=== PATIENT | female | born 1995 | race Caucasian/White ===

== ENCOUNTER 2024-05-07 18:06 | Emergency (ER) | payer OTHER, SELFPAY ==
--- NOTE | ~2024-05-07 | US_ITS ---
CLINICAL HISTORY: swelling, pain, high concern for DVTs Bilateral lower extremity venous duplex ultrasound. Study was performed using color and spectral waveform analysis. Comparison: None Findings: Visualized deep veins are fully compressible with normal flow and augmentation. No popliteal cysts. No significant adenopathy. Impression: Bilateral lower extremity venous duplex ultrasound negative for DVT This document has been electronically signed by: Jorge Willis MD on 05/07/2024 20:34:49
--- NOTE | ~2024-05-07 | CT_ITS ---
CLINICAL HISTORY: SOB, dizziness, concern for PE CT angiogram chest/pulmonary arteries with contrast Multiplanar reconstructions and MIPS Comparison: None Findings: No filling defects are noted to suggest pulmonary embolus. Main pulmonary artery normal in caliber. Thoracic aorta normal caliber without dissection. Heart size normal. Great vessel origins patent. No coronary calcifications. No significant focal parenchymal abnormalities. No significant mediastinal or hilar adenopathy. No free pleural fluid. No acute bony abnormality noted. Impression: No evidence of pulmonary embolus This document has been electronically signed by: Jorge Willis MD on 05/07/2024 21:04:19
--- NOTE | 2024-05-07 18:07 | ECG_ITS ---
Test Reason : CHEST PAIN Blood Pressure : */* mmHG Vent. Rate : 110 BPM Atrial Rate : 110 BPM P-R Int : 140 ms QRS Dur : 70 ms QT Int : 388 ms P-R-T Axes : 69 61 35 degrees QTcB Int : 525 ms Sinus tachycardia Possible Left atrial enlargement T wave abnormality, consider inferior ischemia Prolonged QT Abnormal ECG No previous ECGs available Referred By: Generic ED Physician Electronically Signed By: Deejay Simon
[2024-05-07 18:14] VITALS: BP 147/103; PULSE 126; RESP 20; TEMP 36.7; O2SAT 100; BMI 21.8
--- NOTE | 2024-05-07 18:16 | ED_ITS ---
HPI - General Adult General Chief complaint: Chest Pain Stated complaint: chest pain Time Seen by Provider: 05/07/24 18:28 Source: patient Mode of arrival: ambulatory Limitations: no limitations History of Present Illness ED Provider: Lenora Arteaga PA-C HPI narrative: Patient is a 28 year old assigned female at with a history of tobacco use, marijuana use, and OCP use presenting to the emergency department today with intermittent chest pain, palpitations, shortness of breath, dizziness, and right lower leg pain. Patient states that over the last week she has been having intermittent chest pain, shortness of breath, dizziness, and right lower leg pain. Patient states that she is much more winded doing any version of walking. Patient states that her sister has a clotting disorder and her mother of a heart attack in her early 50s. Patient denies any lightheadedness, abdominal pain, nausea, vomiting, fever, chills, blurry vision, double vision, loss of vision, back pain, night sweats, pain with urination, increased urinary frequency, increased urinary urgency, blood in her urine or stool, syncope or a near syncopal episode, recent trauma or falls, bowel incontinence, bladder incontinence, or any other complaints at this time. Onset (ago): week(s) (1) Relieving factors: none Exacerbating factors: other (exertion) Associated symptoms: shortness of breath Treatments prior to arrival: none Related Data Allergies Allergy/AdvReac Type Severity Reaction Status Date / Time gluten Allergy Hives Verified 05/07/24 18:20 nickel Allergy Rash Verified 05/07/24 18:20 Review of Systems 2 Constitutional: Constitutional: Reports no additional constitutional complaints, Denies chills, Denies fever(s) and Denies night sweats Eyes: Eyes: Reports no additional eye complaints, Denies blurry vision, Denies change in vision, Denies diplopia, Denies eye discharge, Denies loss of vision and Denies eye pain ENT: Reports dizziness Cardiovascular: Cardiovascular: Reports no additional cardiovascular complaints, Reports chest pain, Denies lightheadedness, Denies Loss of Consciousness, Reports palpitations and Reports dyspnea Respiratory: Respiratory: Reports no additional respiratory complaints, Reports cough and Reports dyspnea Gastrointestinal: Gastrointestinal: Reports no additional gastrointestinal complaints, Denies abdominal pain, Denies melena, Denies hematochezia, Denies change in bowel habits and Denies change in stool character Genitourinary: Genitourinary: Denies hematuria, Denies urinary frequency, Denies dysuria, Denies urinary incontinence, Denies urinary hesitancy and Denies urinary urgency Musculoskeletal: Musculoskeletal: Reports no additional musculoskeletal complaints, Denies numbness and Denies tingling Neurologic: Reports dizziness, Denies loss of vision, Denies numbness and Denies tingling Psychiatric: Psychiatric: Reports no additional psychiatric complaints Endocrine: Endocrine: Reports no additional endocrine complaints and Reports palpitations Hematologic/Lymphatic: Hematologic/Lymphatic: Reports no additional hematologic/lymphatic complaints Allergic/Immunologic: Allergic/Immunologic: Reports no additional allergic/immunologic complaints PMFSH Past Medical History Attestation statement: The following information was validated with the patient. Source: old records reviewed and nursing notes reviewed Social History Social History Smoked in Last 30 Days: No Advance Directives: No Advance Directives Information Provided: No Physical Exam ED Vital Signs: Vital Signs - 24 hr 05/07/24 18:14 05/07/24 20:11 Temperature 98.1 F 99.1 F Pulse Rate 126 H 75 Respiratory Rate 20 18 Blood Pressure 147/103 H 125/83 Pulse Oximetry 100 97 Oxygen Delivery Method Room Air Room Air BMI result Body Mass Index 21.8 Const General: cooperative, no acute distress, alert and awake Nutritional Appearance: well nourished Orientation/consciousness: patient oriented x3 Limitations: no limitations [facility] Head: Yes normal to inspection and Yes atraumatic Ears: hearing grossly normal bilaterally and external ears normal General nose exam: Normal external nose present, no nasal discharge noted and no epistaxis Face and sinus: Yes normal facial exam, No abrasion and No laceration Mouth: Normal oral and palatal mucosa present, no drooling and no muffled voice Eyes General: appearance normal, both eyes and all related structures Periorbital: periorbital findings normal Eyelids: Yes eyelids normal Conjunctivae: conjunctivae normal Pupils: Equal, round and reactive pupils present EOM: EOMs intact bilaterally Neck Neck: Yes normal visual inspection, Yes full ROM and Yes no lymphadenopathy Chest Chest palpation & inspection: normal inspection of the chest Resp Effort & Inspection: normal respiratory effort and able to speak in complete sentences GI Inspection: Yes normal to inspection Neuro General: patient oriented x3, moves all extremities and CN's II-XI intact bilaterally Cranial nerves: Yes Equal, round and reactive pupils present Cognition (Neuro): normal cognition Extrem General: Yes normal to inspection, Yes full ROM and Yes capillary refill normal Psych Appearance: grossly normal Mental Status: mental status grossly normal Affect: normal affect Attitude: cooperative Thought process: Normal thought process present Thought content: Normal thought content present Insight: Good insight present (Psych) Course Course Course Narrative: RME performed by Lenora Arteaga PA-C. Patient is a 28 year old assigned female at presenting to the emergency department with palpitations, shortness of breath, and chest pain. Patient states she is on an oral contraceptive, smokes, and has a sibling with a clotting disorder. Patient states that her mother from a heart attack in her mid 50s. Detailed physical exam and review of systems are deferred to the primary care md. EKG, labs, imaging, and swabs ordered. last ironer aware of patient. Medications Administered Discontinued Medications Generic Name Dose Route Start Last Admin Trade Name Freq PRN Reason Stop Dose Admin Magnesium Sulfate/Dextrose 1 gm in 100 mls @ 100 mls/hr 05/07/24 18:34 05/07/24 20:08 Magnesium Sulfate/D5w IV 05/07/24 19:33 Infused ONCE ONE Infusion Sodium Chloride 1,000 mls @ 999 mls/hr 05/07/24 18:45 05/07/24 20:09 Ns IV 05/07/24 19:45 Infused .Q1H1M FINN Infusion Iohexol 65 ml 05/07/24 20:23 05/07/24 20:24 Iohexol 350 Mg/Ml 100 Ml Infus..Btl IV 05/07/24 20:24 65 ml ONCE ONE Administration Potassium Chloride 40 meq 05/07/24 19:05 05/07/24 19:12 Potassium Chloride Packet 20 Meq Packet PO 05/07/24 19:06 40 meq ONCE ONE Administration Medical Decision Making Medical Decision Making MDM Narrative: Patient is a 28 year old assigned female at with a history of tobacco use, marijuana use, and OCP use presenting to the emergency department today with intermittent chest pain, palpitations, shortness of breath, dizziness, and right lower leg pain. Patient's physical exam was unremarkable. Patient's blood work showed a very mild hypokalemia but was otherwise unremarkable. Patient's urine showed no acute process. Patient's initial EKG showed sinus tachycardia with a prolonged QT. Patient's repeat EKG showed sinus rhythm with a normalized QT. Patient's CT PE study showed no acute process. Patient's bilateral lower leg US showed no acute process. Given the patient's significant personal history and familial history, I am suspicious the patient has an underlying arrhythmia or condition such as POTS. I explained my physical exam findings as well as all test results to the patient. I answered all questions asked by the patient. Patient was given IV magnesium and PO potassium. I stressed the importance of the patient taking her medication as directed (either prescribed or as the over the counter packaging recommends). I stressed the importance of the patient following up with her primary care provider and a foundation maker. I stressed the importance of the patient returning to the emergency department immediately if her symptoms were to worsen or if she were to develop any dizziness, shortness of breath, difficulty breathing, chest pain, blurry vision, loss of vision, nausea, vomiting, abdominal pain, fever, chills, back pain, or any other complaints. Patient verbalized agreement and understanding with this treatment plan and discharge. Differential Diagnosis Differential Diagnoses: The differential diagnosis associated with the presentation includes Palpitations Pulmonary embolism DVT POTS Arrhythmia Admission/Observation Consideration of admission/observation: Escalation of care including admission/observation considered Patient would have been admitted to the hospital had her work up had any findings where hospital admission was appropriate and her clinical presentation warranted hospital admission. Lab Data [facility] Lab Attestation statement: I reviewed the patient's lab results. My interpretation of these results are in the [facility] Rationale portion of this note. 05/07/24 18:35 05/07/24 18:35 Labs: Lab Results 05/07/24 05/07/24 05/07/24 Range/Units 18:35 18:39 20:19 WBC 6.7 (4.8-10.8) X10*3/uL RBC 4.37 (4.20-5.50) X10*6/uL Hgb 13.5 (12.0-16.0) g/dl Hct 38.1 (37.0-47.0) % MCV 87.2 (80.0-98.0) fL MCH 30.9 (27.0-33.0) pg MCHC 35.4 H (31.0-35.0) g/dl RDW 11.9 (11.0-16.0) % Plt Count 296 (160-400) X10*3/uL MPV 8.9 L (9.4-12.3) fL Immature Gran % (Auto) 0.2 (0.0-0.4) % Neut % (Auto) 58.8 (45-73) % Lymph % (Auto) 31.9 (20-40) % Mcclain % (Auto) 8.1 (2-11) % Eos % (Auto) 0.2 (0-4) % Baso % (Auto) 0.8 (0-2) % Lymph # (Auto) 2.1 (1.2-4.9) X10*3/uL Mcclain # (Auto) 0.5 (0.1-1.2) X10*3/uL Eos # (Auto) 0.0 (0.0-0.4) X10*3/uL Baso # (Auto) 0.1 (0.0-0.2) X10*3/uL Abs Immat Gran (auto) 0.01 (0.00-0.03) X10*3/uL Absolute Neuts (auto) 3.9 (2.0-8.3) x10*3/uL Absolute Nucleated RBC 0.000 (0.0-0.012) X10*3/uL Nucleated RBC % (auto) 0.0 (0.0-0.2) /100WBC PT 11.8 (10.9-12.4) SEC INR 1.0 (0.9-1.1) APTT 26.2 (26.0-36.8) SEC Sodium 141 (135-145) mmol/L Potassium 3.2 L (3.3-5.1) mmol/L Chloride 107 (96-108) mmol/L Carbon Dioxide 25 (22-29) mmol/L Anion Gap 12 (12-20) BUN 8 L (9-16) mg/dL Creatinine 0.78 (0.5-1.4) mg/dL Estim Creat Clear Calc 106.3 Estimated GFR > 60 Random Glucose 98 (60-115) mg/dL Calcium 9.3 (8.4-10.2) mg/dL Magnesium 1.9 (1.6-2.6) mg/dL Total Bilirubin 0.4 (0.0-1.0) mg/dL AST 23 (5-31) U/L ALT 24 (0-31) U/L Alkaline Phosphatase 46 (39-117) U/L Troponin I High Sens < 2.7 (<3.5-17.0) ng/L B-Natriuretic Peptide < 10 (<100) pg/mL Total Protein 7.9 (6.5-8.0) g/dL Albumin 4.5 (3.5-5.0) g/dL TSH 0.63 (0.32-4.0) uIU/mL Beta HCG, Quant < 2 mIU/mL Urine Color Yellow Urine Appearance Clear Urine pH 7.0 (5.0-9.0) Ur Specific [place] <= 1.005 (1.005-1.025) Urine Protein Negative (Neg-Trace) mg/dL Urine Glucose (UA) Negative (Negative) mg/dL Urine Ketones Negative (Negative) mg/dL Urine Blood Negative (Negative) Urine Nitrite Negative (Negative) Ur Leukocyte Esterase Negative (Negative) Influenza Type A (PCR) NEGATIVE (Negative) Influenza Type B (PCR) NEGATIVE (Negative) RSV RNA Qual (PCR) NEGATIVE (Negative) SARS-CoV-2 RNA (RT-PCR) NEGATIVE (Negative) Independent Interpretation I performed an independent interpretation of an: EKG, Ultrasound and CT Scan Interpretation: My interpretation is in agreement with the radiologist's impression of these imaging studies. L Report Number: [id number]: Total DLP = 252.00 mGy-cm CLINICAL HISTORY: SOB, dizziness, concern for PE CT angiogram chest/pulmonary arteries with contrast Multiplanar reconstructions and MIPS Comparison: None Findings: No filling defects are noted to suggest pulmonary embolus. Main pulmonary artery normal in caliber. Thoracic aorta normal caliber without dissection. Heart size normal. Great vessel origins patent. No coronary calcifications. No significant focal parenchymal abnormalities. No significant mediastinal or hilar adenopathy. No free pleural fluid. No acute bony abnormality noted. Impression: No evidence of pulmonary embolus This document has been electronically signed by: Jorge Willis MD on 05/07/2024 21:04:19 Dictated By: Jorge Willis MD Signed By: Electronically signed by Jorge Willis MD 05/07/24 2433 CLINICAL HISTORY: swelling, pain, high concern for DVTs Bilateral lower extremity venous duplex ultrasound. Study was performed using color and spectral waveform analysis. Comparison: None Findings: Visualized deep veins are fully compressible with normal flow and augmentation. No popliteal cysts. No significant adenopathy. Impression: Bilateral lower extremity venous duplex ultrasound negative for DVT This document has been electronically signed by: Jorge Willis MD on 05/07/2024 20:34:49 Dictated By: Jorge Willis MD Signed By: Electronically signed by Jorge Willis MD 05/07/242034 Vent. Rate: 110 BPM Atrial Rate: 110 BPM P-R Int: 140 ms QRS Dur: 70 ms QT Int: 388 ms P-R-T Axes: 69 61 35 degrees QTcB Int: 525 ms Sinus tachycardia Possible Left atrial enlargement T wave abnormality, consider inferior ischemia Prolonged QT No previous ECGs available DD/ 11 Vent. Rate: 91 BPM Atrial Rate: 91 BPM P-R Int: 150 ms QRS Dur: 80 ms QT Int: 344 ms P-R-T Axes: 60 63 52 degrees QTcB Int: 423 ms Normal sinus rhythm Normal ECG When compared with ECG of 08-Feb-2025 18:12, T wave inversion no longer evident in Inferior leads DD/ 8902 Radiology Impression Discussion of test interpretation with radiology: I have reviewed the radiologist's reading. Discharge Plan Discharge Clinical Impression: Heart palpitations, Prolonged QT interval Patient Disposition: Home, Self-Care Instructions: Heart Palpitations (DC) Additional Instructions: Your testing today was reassuring you have no emergent cause for your symptoms. Your potassium was 0.1 below the normal limit and we gave you some orally while you were in the department. Your QT interval was on the longer end of normal on your first EKG - to avoid any arrhythmia occurring, we provided you with IV magnesium. Your repeat EKG showed resolution of this which is again, reassuring. Your bilateral lower leg ultrasound showed no evidence of DVT (blood clot) in the legs. Your CT of the chest (PE protocol) showed no evidence of blood clots in your lungs. You may have POTS or some other intermittent arrhythmia as the root cause of your symptoms. Given your family history and extensive risk factors, you should follow up with a foundation maker. I've provided you with a phone number to call to arrange this. Follow up with your primary care provider. Return to the emergency department immediately if your symptoms worsen or if you develop any dizziness, shortness of breath, difficulty breathing, chest pain, blurry vision, loss of vision, nausea, vomiting, abdominal pain, fever, chills, back pain, or any other complaints. Please see the information below about our Patient Portal. If you are not yet enrolled in the [facility] Patient Portal, you will receive an enrollment email invitation following your visit to any [facility] [place] [place] care setting. You may also self-enroll in the Patient Portal by visiting our website: [email or web address] The following information is required to access the Patient Portal: - Your [facility] [place] Medical Record Number - Your personal home email address (must match what is in your electronic medical record, Registration staff can assist with this) - Name - Date of Capabilities of the Patient Portal: - Message some providers - View upcoming appointments - Access your health summary, medical history, and visit history - View current conditions and allergies - View procedure and lab results - View your medications, including guidelines, side effects, and precautions - Complete pre-appointment questionnaires requested by your provider - Ready summary reports of your office visits and procedures To access the Patient Portal Mobile Tim, follow these directions: - Search [employer]Book in the Tim Store or [employer] Store - Download the Tim - Search for [facility] - Enter your login/password Referrals: [facility] [place] [facility] [Provider Group] (Call to establish and follow up with a foundation maker. ) Claribel Hartman NP [Primary Care Provider] - Interventions: ED Discharge Assessment Last Done: 05/07/24 21:19 Print Language: Italian
--- NOTE | 2024-05-07 18:19 | ECG_ITS ---
Test Reason : CHEST PAIN Blood Pressure : */* mmHG Vent. Rate : 91 BPM Atrial Rate : 91 BPM P-R Int : 150 ms QRS Dur : 80 ms QT Int : 344 ms P-R-T Axes : 60 63 52 degrees QTcB Int : 423 ms Normal sinus rhythm Normal ECG When compared with ECG of 07-May-2024 18:12, T wave inversion no longer evident in Inferior leads Referred By: Lenora Arteaga Electronically Signed By: Deejay Simon
[2024-05-07 18:40] LABS: MANUAL DIFF FLAG NO
--- OUTSIDE RECORDS SUMMARY | 2024-05-07 18:43 | XMS_ITS | Data Portability ---
Author Organization ELISHA [facility] [address] Address [address] [place] [address] Assessment No assessment recorded. Plan of Treatment Reminders Order Date Submit Date Provider Last Modified By Organization Details Last Modified Time Details Appointments None record ed. Lab None record ed. Referral None record ed. Procedures None record ed. Surgeries None record ed. Imaging None record ed. Medication Orders None record ed. Patient TargetsNo targets recorded. Patient InstructionsNo instructions recorded. Reason for Referral None Reported. Procedures Surgical History Date Name Laterality Status Provider Name and Address Organization Details Recorded Time OC-UDS Send Out Template NON DOT completed LUIS DANIEL Reina [employer] [facility] 08/18/2023 16:39:23 Imaging Results None recorded. Procedure Notes None recorded. Medical Equipment None Reported. Medications Name Sig Start Date Stop Date Status Note LastModified by Organization Details LastModified Time norgestimate 0.25 mg-ethinyl estradiol 35 mcg tablet TAKE 1 TABLET BY MOUTH EVERY DAY active Not Available Not Available No t Available azithromycin 250 mg tablet TAKE 2 TABLETS BY MOUTH TODAY, THEN TAKE 1 TABLET DAILY FOR 4 DAYS DIRECTED active Not Available Not Available No t Available prednisone 20 mg tablet TAKE 2 TABLETS BY MOUTH DAILY FOR 5 DAYS active Not Available Not Available No t Available albuterol sulfate HFA 90 mcg/actuation aerosol inhaler TAKE 2 PUFFS BY MOUTH EVERY 6 HOURS NEEDED FOR SHORTNESS OF BREATH OR WHEEZING active Not Available Not Available No t Available bupropion HCl XL 300 mg 24 hr tablet, extended release TAKE 1 TABLET BY MOUTH EVERY 24 HOURS. REPLACE 150MG active Not Available Not Available No t Available bupropion HCl XL 150 mg 24 hr tablet, extended release TAKE 1 TABLET BY MOUTH EVERY 24 HOURS active Not Available Not Available No t Available nitrofurantoi n monohydrate/m acrocrystals 100 mg capsule TAKE 1 CAPSULE BY MOUTH TWICE A DAY FOR 7 DAYS active Not Available Not Available No t Available Vitals None Recorded Social History None recorded. Functional Status None recorded. Mental Status None recorded. Family History Nothing Reported. Medical History No medical history recorded. Gynecological HistoryNo gynecological history recorded. Obstetrics History GPAL:G 0 P 0 0 0 0 Past Encounters Encounter ID Performer Location Encounter Start Date Encounter Closed Date Diagnosis/Indication Diagnosis SNOMED-CT Code Diagnosis ICD10 Code Diagnosis Note [id number] [address] [place] [address] 08/01/2018 09:47:12 08/01/2018 10:21:[id number] [place] [address] 08/30/2020 11:32:12 08/30/2020 12:06:42 [id number] [place] [address] 05/13/2020 09:57:00 05/13/2020 10:41:45 [id number] [place] [address] 03/26/2018 13:51:26 03/26/2018 14:55:41 [id number] [address] [place] [address] 11/05/2021 10:14:15 11/05/2021 12:30:27 [id number] [address] [place] [address] 07/10/2020 09:07:49 07/10/2020 09:23:04 [id number] [address] [place] [address] 09/11/2020 09:51:48 09/11/2020 11:17:59 [id number] [address] [place] [address] 03/18/2021 11:39:08 03/18/2021 12:37:56 [id number] ELISHA LEIVA [address] [address] 08/18/2023 16:23:34 08/19/2023 09:28:32 History and physical examination, occupation 689851208 Z02.1 Health Concerns Section Related Observation LastModified by Organization Detai ls LastModified Time None Recorded Concern Status LastModified by Organization Details LastModified Time None Recorded Advance Directives Directive None Recorded Payers Encounter Date Sequence Insurance Name Policy Number Policy Martinez Covered Member ID Martinez Member ID Guarantor Name 08/30/2020 1 [place] [id number] Jigar Russell [id number] Marie Emerald Russell 09/11/2020 1 [place] [id number] Jigar Russell [id number] 29 Marie Emerald Russell 03/18/2021 1 [place] [id number] Jigar Russell [id number] 29 Marie Emerald Russell 11/05/2021 1 [place] [id number] Jigar Russell [id number] 29 Marie Emerald Yvonne 08/18/2023 OC[facility]CREEN [facility] Russell OBGyn Episode No OBEpisode recorded.
[2024-05-07 18:47] LABS: Basophils Absolute Auto 0.1 X10*3/uL (0.0-0.2); Basophils Percent Auto 0.8 % (0-2); Eosinophils Percent Auto 0.2 % (0-4); Hematocrit 38.1 % (37.0-47.0); Hemoglobin 13.5 g/dl (12.0-16.0); Imm Gran Abs Auto 0.01 X10*3/uL (0.00-0.03); Imm Gran Pct Auto 0.2 % (0.0-0.4); Lymphocytes Absolute Auto 2.1 X10*3/uL (1.2-4.9); Lymphocytes Percent Auto 31.9 % (20-40); Mean Corpuscular HGB Conc 35.4 g/dl (31.0-35.0); Mean Corpuscular Hemoglobin 30.9 pg (27.0-33.0); Mean Corpuscular Volume 87.2 fL (80.0-98.0); Mean Platelet Volume 8.9 fL (9.4-12.3); Monocytes Absolute Auto 0.5 X10*3/uL (0.1-1.2); Monocytes Percent Auto 8.1 % (2-11); Neutrophils Absolute Auto 3.9 x10*3/uL (2.0-8.3); Neutrophils Percent Auto 58.8 % (45-73); Platelet Count 296 X10*3/uL (160-400); Red Blood Count 4.37 X10*6/uL (4.20-5.50); Red Cell Distribution Width 11.9 % (11.0-16.0); White Blood Count 6.7 X10*3/uL (4.8-10.8)
[2024-05-07 18:54] LABS: Prothrombin Time 11.8 SEC (10.9-12.4)
[2024-05-07] MEDS: Magnesium Sulfate/D5W 1 GM/100 ML PIGGYBACK IV (18:55)
[2024-05-07] MEDS: 0.9 % Sodium Chloride 1,000 ML 999 ML IV (18:56)
[2024-05-07 18:57] LABS: Partial Thromboplastin Time 26.2 SEC (26.0-36.8)
[2024-05-07 19:02] LABS: Alanine Aminotransferase 24 U/L (0-31); Albumin Level 4.5 g/dL (3.5-5.0); Alkaline Phosphatase 46 U/L (39-117); Anion Gap 12 (12-20); Aspartate Amino Transferase 23 U/L (5-31); Bilirubin Total 0.4 mg/dL (0.0-1.0); Blood Urea Nitrogen 8 mg/dL (9-16); Calcium 9.3 mg/dL (8.4-10.2); Carbon Dioxide 25 mmol/L (22-29); Chloride 107 mmol/L (96-108); Creatinine Clr Calc Pharmacy 106.3; Estimated Glomerular Filt Rate > 60; Glucose Random 98 mg/dL (60-115); Magnesium 1.9 mg/dL (1.6-2.6); Potassium 3.2 mmol/L (3.3-5.1); Sodium 141 mmol/L (135-145); Total Protein 7.9 g/dL (6.5-8.0)
[2024-05-07 19:03] LABS: HCG Quantitative < 2 mIU/mL
[2024-05-07 19:07] LABS: B Type Natriuretic Peptide < 10 pg/mL (<100)
[2024-05-07 19:09] LABS: Troponin-I High Sensitivity < 2.7 ng/L (<3.5-17.0)
[2024-05-07] MEDS: Potassium Chloride Packet 20 MEQ PACKET 40 MEQ PO (19:12)
[2024-05-07 19:17] LABS: TSH reflex Free T4 0.63 uIU/mL (0.32-4.0)
[2024-05-07 19:21] LABS: Influenza A PCR NEGATIVE (Negative); Influenza B PCR NEGATIVE (Negative); Resp Syncy Virus RNA Qual PCR NEGATIVE (Negative); SARS COV2 PCR INHOUSE NEGATIVE (Negative)
[2024-05-07 20:11] VITALS: BP 125/83; PULSE 75; RESP 18; TEMP 37.3; O2SAT 97
[2024-05-07] MEDS: iohexoL 350 MG/ML 100 ML INFUS..BTL 65 ML IV (20:24)
[2024-05-07 20:30] LABS: Appearance Urine Clear; Color Urine Yellow; Glucose Urine UA Negative (Negative); Leukocyte Esterase Urine Negative (Negative); Nitrite Urine Negative (Negative); Specific Gravity - Urine <= 1.005 (1.005-1.025); Urine Blood Negative (Negative); Urine Ketones Negative (Negative); Urine Protein Negative (Neg-Trace)
[2024-05-07 21:19] VITALS: BP 116/84; PULSE 85; RESP 18; TEMP 36.6; O2SAT 98
== END 2024-05-07 21:20 | disposition home or self-care (01) ==
PROVIDERS: Physician Assistant Medical; Emergency Provider Emergency Medicine; PCP Nurse Practitioner Family
DX: R00.2 Palpitations (principal); R94.31 Abnormal electrocardiogram [ECG] [EKG]; R00.0 Tachycardia, unspecified; E87.6 Hypokalemia; M79.661 Pain in right lower leg; M79.662 Pain in left lower leg; R05.9 Cough, unspecified; R06.02 Shortness of breath; Z03.818 Encounter for observation for suspected exposure to other biological agents ruled out
CPT/HCPCS: 0241U; 36415; 71275; 80053; 81003; 83735; 83880; 84443; 84484; 84702; 85025; 85610; 85730; 93005; 93970; 96365; 99285; J3475; Q9967

== ENCOUNTER → 2024-05-07 18:07 | Outpatient (BNV) | payer SELFPAY | PROVIDERS: Emergency Provider Emergency Medicine; PCP Nurse Practitioner Family; Visit Provider Internal Medicine Cardiovascular Disease | DX: R00.0 Tachycardia, unspecified (principal); R07.9 Chest pain, unspecified | CPT/HCPCS: 93010 ==

== ENCOUNTER → 2024-05-07 18:59 | Outpatient (BNV) | payer SELFPAY | PROVIDERS: Emergency Provider Emergency Medicine; PCP Nurse Practitioner Family; Visit Provider Radiology Diagnostic Radiology | DX: R06.02 Shortness of breath (principal); R42 Dizziness and giddiness; R22.40 Localized swelling, mass and lump, unspecified lower limb; M79.669 Pain in unspecified lower leg | CPT/HCPCS: 71275; 93970 ==